=== PATIENT | male | born 1965 | race Caucasian/White ===

== ENCOUNTER 2021-11-21 17:26 | Emergency (ER) | payer OTHER ==
[2021-11-21] MEDS ORDERED: Lidocaine 1% w/Epinephrine 1:100K 20 ML VIAL ONE (18:23)
[2021-11-21] MEDS ORDERED: Boostrix 0.5 ML (Tdap) VIAL ONE (18:52)
[2021-11-21] MEDS ORDERED: Bacitracin 1 PK ONE (19:24)
== END 2021-11-21 20:05 | disposition home or self-care (01) ==
LOC: CSHERS 17:26
DX: S81.812A Laceration without foreign body, left lower leg, initial encounter (principal)
CPT/HCPCS: 12034; 90471; 90715